=== PATIENT | female | born 1970 | race Caucasian/White ===

== ENCOUNTER 2018-09-10 20:03 | Emergency (ER) | payer SELFPAY ==
--- NOTE | 2018-09-10 20:27 | ER Document Report ---
ED Medical Screen (RME) - General Chief Complaint: Chest Pain > 30 Stated Complaint: CHEST PRESSURE Time Seen by Provider: 09/10/18 20:22 Mode of Arrival: Wheelchair Information source: Patient Notes: Patient presents complaining of left-sided chest pain that radiates to the shoulder that woke her up at 630 this morning. Patient states she has had pain throughout the day and currently describes it as an ache. Patient does complain of nausea and denies any vomiting. Patient has had a mild cough. hx: Hypothyroid, hypertension, hysterectomy I have greeted and performed a rapid initial assessment of this patient. A comprehensive ED assessment and evaluation of the patient, analysis of test results and completion of the medical decision making process will be conducted by additional ED providers. TRAVEL OUTSIDE OF THE [place] IN LAST 30 DAYS: No Physical Exam - Vital signs Vitals: Temp Pulse Resp BP Pulse Ox 98.1 F 59 L 24 H 137/81 H 96 09/10/18 20:07 09/10/18 20:07 09/10/18 20:07 09/10/18 20:07 09/10/18 20:07 - Cardiovascular Rhythm: Regular Heart sounds: S1 appreciated, S2 appreciated Course - Vital Signs Vital signs: Temp Pulse Resp BP Pulse Ox 98.1 F 59 L 24 H 137/81 H 96 09/10/18 20:07 09/10/18 20:07 09/10/18 20:07 09/10/18 20:07 09/10/18 20:07
[2018-09-10 21:15] LABS: ABSOLUTE BASOPHILS # (AUTO) 0.1 10^3/uL (0.0-0.2); ABSOLUTE EOSINOPHILS # (AUTO) 0.6 10^3/uL (0.0-0.6); ABSOLUTE MONOCYTES (AUTO) 0.5 10^3/uL (0.1-1.4); ABSOLUTE NEUT (AUTO) 5.8 10^3/uL (1.7-8.2); BASOPHILS % (AUTO) 0.6 % (0-2); EOSINOPHILS % (AUTO) 6.6 % (0-6); HEMATOCRIT 41.6 % (36.0-47.0); HEMOGLOBIN 14.3 g/dL (12.0-15.5); LYMPHOCYTES % (AUTO) 22.1 % (13-45); MEAN CORPUSCULAR HEMOGLOBIN 30.5 pg (27.0-33.4); MEAN CORPUSCULAR HGB CONC 34.4 g/dL (32.0-36.0); MEAN CORPUSCULAR VOLUME 89 fl (80-97); MONOCYTES % (AUTO) 5.5 % (3-13); PLATELET COUNT 150 10^3/uL (150-450); RED CELL DISTRIBUTION WIDTH 13.6 % (11.5-14.0); SEGMENTED NEUTROPHILS % (AUTO) 65.2 % (42-78); TOTAL CELLS COUNTED % (AUTO) 100 %; WHITE BLOOD COUNT 8.9 10^3/uL (4.0-10.5)
--- NOTE | 2018-09-10 21:26 | RADIOLOGY REPORT (SQ) ---
EXAM DESCRIPTION: XR CHEST 2 VIEWS COMPLETED DATE/TME: 09/10/2018 20:26 CLINICAL HISTORY: 48 years Female cp COMPARISON: None. FINDINGS: Heart is mildly enlarged. Lungs are clear without evidence of consolidation or edema. No pleural fluid or pneumothorax. Mild elevation of the anterior aspect of the hemidiaphragm on the right. IMPRESSION: Cardiac enlargement without evidence of acute process
[2018-09-10 21:35] LABS: ALANINE AMINOTRANSFERASE 29 U/L (9-52); ALBUMIN 4.3 g/dL (3.5-5.0); ALKALINE PHOSPHATASE 108 U/L (38-126); ANION GAP 11 (5-19); ASPARTATE AMINO TRANSFERASE 16 U/L (14-36); BILIRUBIN,DIRECT 0.3 mg/dL (0.0-0.4); BILIRUBIN,TOTAL 0.3 mg/dL (0.2-1.3); BLOOD UREA NITROGEN 15 mg/dL (7-20); CALCIUM 9.7 mg/dL (8.4-10.2); CARBON DIOXIDE 27 mmol/L (22-30); CHLORIDE 106 mmol/L (98-107); GLUCOSE 104 mg/dL (75-110); SODIUM 143.6 mmol/L (137-145); TOTAL PROTEIN 6.6 g/dL (6.3-8.2)
--- NOTE | 2018-09-10 23:45 | EKG REPORT ---
SEVERITY:- ABNORMAL ECG - SINUS RHYTHM FIRST DEGREE AV BLOCK : Confirmed by: Jessica Traylor MD 10-Sep-2018 23:43:30
[2018-09-11] MEDS ORDERED: ENOXAPARIN SODIUM INJ 150 MG/1 ML DISP.SYRIN SUBCUT SCH ×2 (02:00→10:00)
[2018-09-11] MEDS ORDERED: ENOXAPARIN SODIUM INJ 150 MG/1 ML DISP.SYRIN SUBCUT ONE (02:15)
--- NOTE | 2018-09-11 02:59 | ER Document Report ---
ED General - General Chief Complaint: Chest Pain > 30 Stated Complaint: CHEST PRESSURE Time Seen by Provider: 09/10/18 20:22 Mode of Arrival: Wheelchair Notes: Patient is a 48-year-old female with past medical history of hypertension, morbid obesity, diabetes controlled with diet, no history of coronary artery disease, presents complaining an episode of chest pain that started earlier today and resolved. Patient states that this chest pain woke her from sleep at approximately 1830 and was a throbbing, severe, constant pressure in her left chest radiating into her left upper extremity. States the pain came on abruptly and resolved after she took aspirin. Denies associated vomiting or diaphoresis but states that she was quite nauseous. Denies ever having similar pain in the past. No obvious exacerbating factor. Has not had recurrence of pain since that time. Has not seen her primary care physician regarding today's concerns. States her last stress test was in 2006 and she has never had a cardiac ca theterization. TRAVEL OUTSIDE OF THE [place] IN LAST 30 DAYS: No - Related Data Allergies/Adverse Reactions: No Known Drug Allergies Allergy (Verified 09/11/18 03:43) Past Medical History - General Information source: Patient - Social History Smoking Status: Current Every Day Smoker Frequency of alcohol use: None Drug Abuse: None Lives with: Spouse/Significant other Family History: Reviewed & Not Pertinent Patient has suicidal ideation: No Patient has homicidal ideation: No - Past Medical History Cardiac Medical History: Reports: Hx Hypertension Renal/ Medical History: Denies: Hx Peritoneal Dialysis Past Surgical History: Reports: Hx Hysterectomy, Hx Thyroid Surgery - thyroide ctomy Review of Systems - Review of Systems Notes: Constitutional: Negative for fever. HENT: Negative for sore throat. Eyes: Negative for visual changes. Cardiovascular: Positive for chest pain. Respiratory: Negative for shortness of breath. Gastrointestinal: Negative for abdominal pain, vomiting or diarrhea. Genitourinary: Negative for dysuria. Musculoskeletal: Negative for back pain. Skin: Negative for rash. Neurological: Negative for headaches, weakness or numbness. 10 point ROS negative except as marked above and in HPI. Physical Exam - Vital signs Vitals: Temp Pulse Resp BP Pulse Ox 98.1 F 59 L 24 H 137/81 H 96 09/10/18 20:07 09/10/18 20:07 09/10/18 20:07 09/10/18 20:07 09/10/18 20:07 Interpretation: Normal Notes: PHYSICAL EXAMINATION: GENERAL: Well-appearing, well-nourished and in no acute distress. HEAD: Atraumatic, normocephalic. EYES: Pupils equal round and reactive to light, extraocular movements intact, sclera anicteric, conjunctiva are normal. ENT: nares patent, oropharynx clear without exudates. Moist mucous membranes. NECK: Normal range of motion, supple without lymphadenopathy LUNGS: Breath sounds clear to auscultation bilaterally and equal. No wheezes rales or rhonchi. HEART: Regular rate and rhythm without murmurs ABDOMEN: Soft, nontender, normoactive bowel sounds. No guarding, no rebound. No masses appreciated. EXTREMITIES: Normal range of motion, no pitting or edema. No cyanosis. NEUROLOGICAL: No focal neurological deficits. Moves all extremities spontaneously and on command. PSYCH: Normal mood, normal affect. SKIN: Warm, Dry, normal turgor, no rashes or lesions noted. Course - Re-evaluation Re-evalutation: 09/11/18 02:57 Patient presents with an episode of chest pain now resolved found to have an elevated troponin at 0.131 on 3-hour recheck from initial which was normal. EKG without ischemic changes. Heart score is 5. Patient remains chest pain-free. Has received Lovenox and aspirin. We do not have the ability to perform cardiac catheterizations until Wednesday of this upcoming week. Have discussed with [facility] and requested transfer. 09/11/18 03:05 I have discussed with Dr. Sweeney who has accepted the patient to [facility]. - Vital Signs Vital signs: Temp Pulse Resp BP Pulse Ox 98.4 F 59 L 18 139/91 H 99 09/11/18 03:01 09/10/18 20:07 09/11/18 03:01 09/11/18 03:01 09/11/18 03:01 - Laboratory Result Diagrams: 09/10/18 21:00 09/10/18 21:00 Laboratory results interpreted by me: 09/10/18 21:00 Eosinophils % 6.6 H - Diagnostic Test Radiology reviewed: Image reviewed, Reports reviewed Radiology results interpreted by me: 09/11/18 02:58 Chest x-ray: No acute infiltrate or pneumothorax - EKG Interpretation by Me Additional EKG results interpreted by me: 09/11/18 02:58 Sinus rhythm, rate 60. No ST elevations or depressions. QTC is 448. Discharge - Discharge Clinical Impression: NSTEMI (non-ST elevated myocardial infarction) Chest pain Qualifiers: Chest pain type: unspecified Qualified Code(s): R07.9 - Chest pain, unspecified Condition: Fair Disposition: [facility]
[2018-09-11] MEDS ORDERED: ATORVASTATIN CALCIUM 80 MG TABLET PO ONE (03:02)
[2018-09-11 03:13] VITALS: BP 139/91
== END 2018-09-11 05:05 | disposition short-term general hospital (02) ==
LOC: ER 20:03
DX: I21.4 Non-ST elevation (NSTEMI) myocardial infarction (principal); R07.9 Chest pain, unspecified; I10 Essential (primary) hypertension; E66.01 Morbid (severe) obesity due to excess calories; E11.9 Type 2 diabetes mellitus without complications; F17.200 Nicotine dependence, unspecified, uncomplicated; Z90.710 Acquired absence of both cervix and uterus
CPT/HCPCS: 93005; 99285; 96372; 36415; 85025; 80053; 84484; 71046; 93010; J1650